=== PATIENT | male | born 1940 | race Caucasian/White ===

== ENCOUNTER 2017-07-19 16:20 | Emergency (ER) | payer MEDICARE, BC ==
[~2017-07-19] VITALS: Ht 177.8 cm; Wt 92.0 kg
[2017-07-19 16:32] VITALS: BP 138/66; PULSE 82; RESP 18; TEMP 98.3; O2SAT 99
--- NOTE | 2017-07-19 17:03 | PD ---
HPI Chief Complaint: Abdominal Pain Time Seen by Provider: 16:58 Travel History International Travel<30 days: No Contact w/Intl Traveler<30days: No Traveled to known affect area: No History of Present Illness HPI Patient comes in complaining of a left flank to left lower quadrant area pain that has been ongoing for the past 4 days associated with nausea and vomiting. Patient describes it as a pressure-like to crampy sensation, rated as 6-8 out of 10. Patient denies any diarrhea, fever, rash, chest pain, headache, neck stiffness, back pain. Patient was at [facility] today for a CAT scan of his abdomen and pelvis which was resulted and the study results sent to the patient. And the report CT shows diverticulosis without diverticular abscess , no evidence of AAA and also no evidence of kidney stone. Denies any known drug allergies Past medical history includes bypass with CABG, right pneumonectomy, back surgery, PFSH Past Medical History Cardiovascular Problems: Yes (CABG) Respiratory: Yes Social History Tobacco Use: No Allergies-Medications (Allergen,Severity, Reaction): Coded Allergies: No Known Allergies (Unverified , 07/19/17) Reported Meds & Prescriptions Reported Meds & Active Scripts Active Reported Apidra Inj (Insulin Glulisine Inj) 1,000 Unit/10 Ml Vial 1 Units SQ DIRECTED Lantus Inj (Insulin Glargine) 1,000 Unit/10 Ml Vial 30 Units SQ HS Vitamin D3 (Cholecalciferol) 2,000 Unit Cap 2,000 Units PO DAILY Folic Acid 0.4 Mg Tab 400 Mcg PO DAILY Tricor (Fenofibrate) 48 Mg Tab 48 Mg PO DAILY Tke with food. Prandin (Repaglinide) 1 Mg Tablet 0.5 Mg PO TID Toprol XL (Metoprolol Succinate) 25 Mg Tab 25 Mg PO DAILY Lexapro (Escitalopram Oxalate) 20 Mg Tab 20 Mg PO DAILY Lipitor (Atorvastatin Calcium) 40 Mg Tab 40 Mg PO HS Aspirin 325 Mg Tab 325 Mg PO DAILY Review of Systems General / Constitutional: No: Fever Eyes: No: Visual changes HENT: No: Headaches Cardiovascular: No: Chest Pain or Discomfort Respiratory: No: Shortness of Breath Gastrointestinal: Positive: Nausea, Abdominal Pain Genitourinary: Positive: Flank Pain Musculoskeletal: No: Pain Skin: No Rash Neurologic: No: Weakness Psychiatric: No: Depression Endocrine: No: Polydipsia Hematologic/Lymphatic: No: Easy Bruising Physical Exam Narrative GENERAL: SKIN: Warm and dry. HEAD: Atraumatic. Normocephalic. EYES: Pupils equal and round. No scleral icterus. No injection or drainage. ENT: No nasal bleeding or discharge. Mucous membranes pink and moist. NECK: Trachea midline. No JVD. CARDIOVASCULAR: Regular rate and rhythm. RESPIRATORY: No accessory muscle use. Clear to auscultation. Breath sounds equal bilaterally. GASTROINTESTINAL: Abdomen soft, non-tender, nondistended. MUSCULOSKELETAL: Extremities without clubbing, cyanosis, or edema. No obvious deformities. NEUROLOGICAL: Awake and alert. No obvious cranial nerve deficits. Motor grossly within normal limits. Five out of 5 muscle strength in the arms and legs. Normal speech. PSYCHIATRIC: Appropriate mood and affect; insight and judgment normal. Data Data Last Documented VS Vital Signs Date Time Temp Pulse Resp B/P (MAP) Pulse Ox O2 Delivery O2 Flow Rate FiO2 07/19/17 17:30 18 07/19/17 17:25 94 Room Air 07/19/17 16:32 98.3 82 138/66 (90) Orders Orders Complete Blood Count With Diff (07/19/17 17:10) Comprehensive Metabolic Panel (07/19/17 17:10) Lipase (07/19/17 17:10) Urinalysis - C+S If Indicated (07/19/17 17:10) Iv Access Insert/Monitor (07/19/17 17:10) Ecg Monitoring (07/19/17 17:10) Oximetry (07/19/17 17:10) NPO (07/19/17 17:10) Morphine Inj (Morphine Inj) (07/19/17 17:15) Ondansetron Inj (Zofran Inj) (07/19/17 17:15) Labs Laboratory Tests Test 07/19/17 17:20 White Blood Count 5.6 TH/MM3 Red Blood Count 4.36 MIL/MM3 Hemoglobin 13.1 GM/DL Hematocrit 38.8 % Mean Corpuscular Volume 88.9 FL Mean Corpuscular Hemoglobin 30.0 PG Mean Corpuscular Hemoglobin Concent 33.8 % Red Cell Distribution Width 16.0 % Platelet Count 181 TH/MM3 Mean Platelet Volume 7.3 FL Neutrophils (%) (Auto) 74.0 % Lymphocytes (%) (Auto) 15.4 % Monocytes (%) (Auto) 7.0 % Eosinophils (%) (Auto) 3.1 % Basophils (%) (Auto) 0.5 % Neutrophils # (Auto) 4.1 TH/MM3 Lymphocytes # (Auto) 0.9 TH/MM3 Monocytes # (Auto) 0.4 TH/MM3 Eosinophils # (Auto) 0.2 TH/MM3 Basophils # (Auto) 0.0 TH/MM3 CBC Comment DIFF FINAL Differential Comment Blood Urea Nitrogen 30 MG/DL Creatinine 1.70 MG/DL Random Glucose 177 MG/DL Total Protein 7.7 GM/DL Albumin 3.8 GM/DL Calcium Level 9.1 MG/DL Alkaline Phosphatase 65 U/L Aspartate Amino Transf (AST/SGOT) 21 U/L Alanine Aminotransferase (ALT/SGPT) 24 U/L Total Bilirubin 0.5 MG/DL Sodium Level 138 MEQ/L Potassium Level 4.2 MEQ/L Chloride Level 105 MEQ/L Carbon Dioxide Level 22.7 MEQ/L Anion Gap 10 MEQ/L Estimat Glomerular Filtration Rate 39 ML/MIN Lipase 108 U/L [facility] Medical Decision Making Medical Screen Exam Complete: Yes Emergency Medical Condition: Yes Medical Record Reviewed: Yes Differential Diagnosis Diverticulosis versus diverticulitis versus diverticular abscess versus kidney stone versus AAA Narrative Course Clinically although the patient did not have any CT evidence of diverticulitis on CAT scan, clinically with a picture of diverticulosis and tenderness to palpation over the left lower quadrant which is the area of this has diverticulosis. It stands to reason that clinically the patient has mild diverticulitis but without any diverticular abscess or perforation at this present time based on CAT scan. Patient will be treated empirically with antibiotics Chemistry shows normal electrolytes with the exception of the BUN of 30 creatinine 1.7 and GFR 39. Random hyperglycemia 177, normal liver normal pancreatic functions. CBC shows no leukocytosis, no anemia, normal platelet count, and no left shift. Diagnosis Primary Impression: Diverticular disease Patient Instructions: Diverticulitis (ED), Diverticulitis Diet (ED), General Instructions Scripts Tramadol (Ultram) 50 Mg Tab 50 MG PO Q6H Y for PAIN, #14 TAB 0 Refills Prov: Stiven Koch MD 07/19/17 Metronidazole (Flagyl) 500 Mg Tab 500 MG PO TID for Infection for 7 Days, #21 TAB 0 Refills Prov: Stiven Koch MD 07/19/17 Ciprofloxacin (Cipro) 500 Mg Tab 500 MG PO BID for Infection for 5 Days, #10 TAB 0 Refills Prov: Stiven Koch MD 07/19/17 Disposition: 01 DISCHARGE HOME Condition: Stable Stiven Koch MD Jul 19, 2017 17:03
[2017-07-19] MEDS ORDERED: ASPI-183 PO (17:07)
[2017-07-19] MEDS ORDERED: LIPI40TA PO (17:07)
[2017-07-19] MEDS ORDERED: LEXA20TA PO (17:07)
[2017-07-19] MEDS ORDERED: REPA1TAB PO (17:07)
[2017-07-19] MEDS ORDERED: FOLI400T PO (17:07)
[2017-07-19] MEDS ORDERED: FENO1TAB76 PO (17:07)
[2017-07-19] MEDS ORDERED: LANTUS2P SQ (17:07)
[2017-07-19] MEDS ORDERED: TOPR25TA PO (17:07)
[2017-07-19] MEDS ORDERED: VITA2000 PO (17:07)
[2017-07-19] MEDS ORDERED: APIDINJ SQ (17:10)
[2017-07-19] MEDS ORDERED: MORPHINE SULFATE 4 MG/ML INJ IV PUSH ONE (17:15)
[2017-07-19] MEDS ORDERED: ONDANSETRON HCL 4 MG/2 ML VIAL IVP ONE (17:15)
[2017-07-19 17:25] VITALS: O2SAT 94
[2017-07-19 17:30] LABS: AUTOMATED NEUTROPHIL # 4.1 TH/MM3 (1.8-7.7); BASOPHIL % 0.5 % (0.0-2.0); EOSINOPHIL # 0.2 TH/MM3 (0-0.4); EOSINOPHIL % 3.1 % (0.0-4.0); HEMATOCRIT 38.8 % (39.0-51.0); HEMOGLOBIN 13.1 GM/DL (13.0-17.0); LYMPH % 15.4 % (9.0-44.0); LYMPHOCYTE # 0.9 TH/MM3 (1.0-4.8); MEAN CELL VOLUME 88.9 FL (80.0-100.0); MEAN CORPUSCULAR HGB CONC 33.8 % (32.0-36.0); MEAN PLATELET VOLUME 7.3 FL (7.0-11.0); MONOCYTE # 0.4 TH/MM3 (0-0.9); PLATELET COUNT 181 TH/MM3 (150-450); RED BLOOD COUNT 4.36 MIL/MM3 (4.50-5.90); WHITE BLOOD COUNT 5.6 TH/MM3 (4.0-11.0)
[2017-07-19 17:52] LABS: CHLORIDE 105 MEQ/L (98-107); SODIUM (NA) 138 MEQ/L (136-145)
[2017-07-19 17:56] LABS: CALCIUM 9.1 MG/DL (8.5-10.1)
[2017-07-19 17:57] LABS: ALBUMIN 3.8 GM/DL (3.4-5.0); BICARBONATE 22.7 MEQ/L (21.0-32.0); BLOOD UREA NITROGEN 30 MG/DL (7-18); GLUCOSE,RANDOM 177 MG/DL (74-106)
[2017-07-19 17:59] LABS: ALT (GPT) 24 U/L (12-78); AST (GOT) 21 U/L (15-37)
[2017-07-19 18:00] LABS: GLOMERULAR FILTRATION RATE 39 ML/MIN (>89)
[2017-07-19 18:01] LABS: TOTAL BILIRUBIN ADULT 0.5 MG/DL (0.2-1.0); TOTAL PROTEIN 7.7 GM/DL (6.4-8.2)
[2017-07-19 18:02] LABS: ALKALINE PHOSPHATASE 65 U/L (45-117)
[2017-07-19] MEDS ORDERED: TRAM50 PO (18:29)
[2017-07-19] MEDS ORDERED: CIPR-9 PO (18:29)
[2017-07-19] MEDS ORDERED: METR-1 PO (18:29)
[2017-07-19] MEDS ORDERED: metroNIDAZOLE 500 MG TAB PO ONE (18:45)
[2017-07-19] MEDS ORDERED: CIPROFLOXACIN 500 MG TAB PO ONE (18:45)
[2017-07-19 19:00] VITALS: BP 134/69; PULSE 97; RESP 18; O2SAT 97
== END 2017-07-19 19:00 | disposition home or self-care (01) ==
LOC: PHED 16:20
DX: K57.90 Diverticulosis of intestine, part unspecified, without perforation or abscess without bleeding (principal)
CPT/HCPCS: 80053; 83690; 85025; 96374; 96375; 99284; J2270; J2405